=== PATIENT | female | born 1945 | race Two or more races ===

== ENCOUNTER 2016-03-07 04:15 | Emergency (ER) | payer OTHER ==
[2016-03-07 04:25] VITALS: TEMP 97.4; BMI 20.6
--- NOTE | 2016-03-07 04:33 | PDOC ---
History of Present Illness - General Chief Complaint: Nausea/Vomiting Stated Complaint: NAUSEA/VOMITING Time Seen by Provider: 03/07/16 04:25 - History of Present Illness Initial Comments: 03/07/16 04:29 This 71-year-old woman with a history of asthma, hypertension, hyperlipidemia brought in by ambulance with a few hour history of epigastric, burning pain and nausea. She denies vomiting/diarrhea/fever. She has had no shortness of breath or chest pain. Patient states that she began aware of epigastric discomfort as she was lying in bed (patient has chronic insomnia). She got up to go to the bathroom but felt nauseated and went to the kitchen sink. Before she could vomit , she began to fall backward. Her was able to catch her and she did not fall to the floor. states that patient did not have loss of consciousness at all, although she was quite pale during the episode. placed her on the kitchen floor and called EMS. Patient states that she does not remember nearly fainting but does remember lying on the floor. She no longer had nausea once she was lying on the floor. Patient's daughter who lives with her parents had vomiting/diarrhea illness about 4 days ago, now recovered. No other sick contacts. No recent unusual food ingestions/outside prepared meal. On presentation, patient has mild burning epigastric pain without nausea, shortness of breath or chest pain. Patient had recent onset of left leg pain (no history of trauma) for which she was seen at urgent care ([facility]) earlier this week. Blood work and ultrasound was performed which was reportedly negative. She saw vascular surgeon yesterday ; she was told that it was probably sciatica and not vascular in origin. The patient has a history of chronic mild lower back pain but no previous history of sciatica Medications Amlodipine Albuterol Lipitor Symbicort Omeprazole (as needed) Past History - Past Medical History Allergies/Adverse Reactions: Allergies Allergy/AdvReac Type Severity Reaction Status Date / Time nystatin Allergy Verified 03/07/16 04:26 Home Medications: Ambulatory Orders Albuterol Sulfate [Proair Respiclick] 90 mcg IH ASDIR 03/07/16 Amlodipine Besylate 5 mg PO DAILY 03/07/16 Budesonide/Formeterol Fumarate [SYMBICORT 160/4.5mcg -] 1 inh IH ASDIR 03/07/16 Lipitor 03/07/16 Ondansetron HCl [Zofran] 4 mg PO BID PRN #10 tablet 03/07/16 Pantoprazole Sodium [Protonix -] 20 mg PO DAILY #30 tablet.ec 03/07/16 Review of Systems - Review of Systems Able to Perform ROS?: Yes Comments:: 12 point review of systems is negative except for what is noted in the history of present illness *Physical Exam - Physical Exam Comments: Adult female, alert and oriented 3, in no acute distress Vital signs as noted HEAD: No contusions, abrasions or lacerations of the scalp; no facial ecchymosis , deformities or tenderness EYES: Pupils equal, round and reactive to light, extraocular movements intact, sclera anicteric, conjunctiva clear PHARYNX: No erythema, exudate or edema; mucous membranes dry NECK: Supple, nontender, no masses or bruits LUNGS: Clear to auscultation bilaterally CARDIAC: S1, S2 normal; no extra sounds, rubs or murmurs heard ABDOMEN:Normoactive bowel sounds, nontender, no masses, no organomegaly EXTREMITIES: Normal range of motion, no edema,deformity or tenderness NEUROLOGICAL: Cranial nerves II through XII grossly intact. Normal speech, normal gait.moving all 4 extremities equally, Sensation intact in all extremities. PSYCH: Normal mood, normal affect. SKIN: Warm, Dry, normal turgor, no rashes or lesions noted. Twelve-lead EKG is performed and this shows sinus bradycardia at 57 bpm. Dent, intervals and wave forms are all normal. No previous EKG tracing available for comparison. ED Treatment Course - LABORATORY CBC & Chemistry Diagram: 03/07/16 04:39 03/07/16 04:39 Medical Decision Making - Medical Decision Making 03/07/16 06:26 Patient continues to have some burning epigastric pain but no nausea after Protonix 40 mg IV. No shortness of breath, chest pain, diaphoresis present Laboratory evaluation shows normal CBC and chemistry profile with evidence of mild prerenal azotemia (BUN 17 with a creatinine 0.7); no electrolyte abnormalities evident and LFTs are also normal. Cardiac enzymes are not elevated Because the patient had an episode of presyncope and history of left lower extremity pain, d-dimer was sent to evaluate for possibility of pulmonary embolus. D-dimer is elevated at 1713 03/07/16 06:41 Results of evaluation discussed with the patient and her family. CT angiogram of the chest will be performed to rule out PE. Patient has a history of pulmonary nodules, first noted several years ago. Since then she's had approximately 3 chest CTs that have shown no growth of the small bilateral nodules. According to the patient and her family, she is due for routine follow- up chest CT since the last study was approximately 3 years ago. 03/07/16 07:11 Care of this patient signed out to incoming physician at end of shift. *DC/Admit/Observation/Transfer Diagnosis at time of Disposition: Epigastric pain - Discharge Dispostion Disposition: HOME Condition at time of disposition: Improved - Prescriptions Prescriptions: Pantoprazole Sodium [Protonix -] 20 mg PO DAILY #30 tablet.ec Ondansetron HCl [Zofran] 4 mg PO BID PRN #10 tablet PRN Reason: Nausea - Referrals Referrals: Augusta Pisano [Primary Care Provider] - - Patient Instructions Printed Discharge Instructions: DI for Abdominal Pain-Adult, DI for Nausea -- Adult Additional Instructions: May Thank you for coming to the ER today Please review your CT scan and follow up with your primary care physician Please monitor yourself for new symptoms Return to the ER for any other concerns or complaints
[2016-03-07] MEDS ORDERED: PANTOPRAZOLE SODIUM 40 MG in SODIUM CHLORIDE 100 ML IVPB ONE (05:01)
[2016-03-07] MEDS ORDERED: PANTOPRAZOLE SODIUM 40 MG VIAL ONE (05:01)
[2016-03-07 05:37] LABS: BASOPHIL 0.1 % (0-2.0); EOSINOPHIL 1.8 % (0-4.5); MCH 29.4 pg (25.7-33.7); MCHC 32.3 g/dl (32.0-36.0); MEAN PLT VOLUME 10.1 fl (7.5-11.1); NEUTROPHILS 75.3 % (42.8-82.8); PLATELET COUNT 208 K/MM3 (134-434); RDW 13.7 % (11.6-15.6); WHITE BLOOD COUNT 8.2 K/mm3 (4.0-10.0)
[2016-03-07 05:40] LABS: URINE APPEARANCE CLEAR; URINE BILIRUBIN NEGATIVE (NEGATIVE); URINE COLOR YELLOW; URINE GLUCOSE (UA) NEGATIVE (NEGATIVE); URINE KETONE NEGATIVE (NEGATIVE); URINE NITRITE NEGATIVE (NEGATIVE); URINE PROTEIN NEGATIVE (NEGATIVE); URINE UROBILINOGEN 2.0 E.U/dl E.U./dl (0.2-1.0)
[2016-03-07 05:44] LABS: URINE BLOOD 1+ (NEGATIVE); URINE LEUK ESTERASE 1+ (NEGATIVE)
[2016-03-07 05:48] LABS: URINE MUCUS FEW; URINE RBC 2 /hpf (0-3); URINE WBC 10 /hpf (3-5)
[2016-03-07 05:50] LABS: INR 1.11 (0.82-1.09); PROTHROMBIN TIME (PATIENT) 12.2 SEC (9.98-11.88)
[2016-03-07 05:59] LABS: ALBUMIN 3.5 g/dl (3.4-5.0); ANION GAP 7 (8-16); BILIRUBIN,TOTAL 0.8 mg/dL (0.2-1.0); CALCIUM 8.5 mg/dL (8.5-10.1); CO2 28 mmol/L (21-32); CREATININE 0.7 mg/dL (0.55-1.02); GLUCOSE,RANDOM 106 mg/dL (74-106); SGOT/AST 23 U/L (15-37); SGPT/ALT 37 U/L (12-78); TOT PROT 6.4 g/dl (6.4-8.2)
[2016-03-07 06:02] LABS: ALK PHOS 80 U/L (45-117); TROPONIN I < 0.02 ng/ml (0.00-0.05)
[2016-03-07] MEDS ORDERED: SODIUM CHLORIDE 1,000 ML IV SCH (06:45)
[2016-03-07 06:48] VITALS: BP 126/63; PULSE 67
--- NOTE | 2016-03-07 08:37 | PDOC ---
*Physical Exam - Vital Signs Last Vital Signs Temp Pulse Resp BP Pulse Ox 97.4 F L 67 16 126/63 96 03/07/16 04:17 03/07/16 06:47 03/07/16 06:47 03/07/16 06:47 03/07/16 06:47 ED Treatment Course - LABORATORY CBC & Chemistry Diagram: 03/07/16 04:39 03/07/16 04:39 - ADDITIONAL ORDERS Additional order review: Laboratory Results 03/07/16 03/07/16 03/07/16 04:56 04:39 04:39 INR D-Dimer 1713 H Sodium Potassium Chloride Carbon Dioxide Anion Gap BUN Creatinine Creat Clearance w eGFR Random Glucose Calcium Total Bilirubin AST ALT Alkaline Phosphatase Creatine Kinase Troponin I Total Protein Albumin Lipase 228 Urine Color Yellow Urine Appearance Clear Urine pH 6.0 Ur Specific [place] 1.020 Urine Protein Negative Urine Glucose (UA) Negative Urine Ketones Negative Urine Blood 1+ H Urine Nitrite Negative Urine Bilirubin Negative Urine Urobilinogen 2.0 e.u/dl H Ur Leukocyte Esterase 1+ H Urine RBC 2 Urine WBC 10 Ur Epithelial Cells Rare Urine Mucus Few 03/07/16 03/07/16 03/07/16 04:39 04:39 04:39 INR 1.11 D-Dimer Sodium 142 Potassium 3.5 Chloride 107 Carbon Dioxide 28 Anion Gap 7 L BUN 17 Creatinine 0.7 Creat Clearance w eGFR > 60 Random Glucose 106 Calcium 8.5 Total Bilirubin 0.8 AST 23 ALT 37 Alkaline Phosphatase 80 Creatine Kinase Cancelled 63 Troponin I Cancelled < 0.02 Total Protein 6.4 Albumin 3.5 Lipase Urine Color Urine Appearance Urine pH Ur Specific [place] Urine Protein Urine Glucose (UA) Urine Ketones Urine Blood Urine Nitrite Urine Bilirubin Urine Urobilinogen Ur Leukocyte Esterase Urine RBC Urine WBC Ur Epithelial Cells Urine Mucus 03/07/16 04:39 RBC 4.72 MCV 91.0 MCHC 32.3 RDW 13.7 MPV 10.1 Neutrophils % 75.3 Lymphocytes % 17.3 Monocytes % 5.5 Eosinophils % 1.8 Basophils % 0.1 - Medications Given in the ED: ED Medications Discontinued Medications Generic Name Dose Route Start Last Admin Trade Name Freq PRN Reason Stop Dose Admin Pantoprazole Sodium 40 mg/ 100 mls @ 200 mls/hr 03/07/16 05:01 03/07/16 05:06 Sodium Chloride IVPB 03/07/16 05:30 200 mls/hr ONCE ONE Administration Medical Decision Making - Medical Decision Making 03/07/16 08:34 This patient was signed out to me by Dr. Diez. Briefly she is a 71-year-old female with a history of hypertension, hyperlipidemia, diabetes who presents emergency department with a complaint of epigastric pain. No vomiting or diarrhea. No recent travel. No fevers or chills. Patient also mentions is lower extremity pain. D dimer sent and is elevated. Patient awaiting CTA. CT came back and demonstrates no evidence of pulmonary embolism. Platelet atelectasis noted in both lungs. Fibrotic changes in both lung apices. There is a 5 mm nodule in the right base. No mediastinal masses, lymphadenopathy. No evidence of aneurysm or dissection. Patient states she feels better. Will discharged home. Patient has a history of lung nodules which are followed as an outpatient (( last CT 3 years ago). Will discharge patient with copies of her CT and asked to follow up at [facility] Emergency Department with any other concerns or complaints *DC/Admit/Observation/Transfer Diagnosis at time of Disposition: Epigastric pain - Discharge Dispostion Disposition: HOME Condition at time of disposition: Improved Admit: No - Patient Instructions Printed Discharge Instructions: DI for Nausea -- Adult, DI for Abdominal Pain- Adult Additional Instructions: May Thank you for coming to the ER today Please review your CT scan and follow up with your primary care physician Please monitor yourself for new symptoms Return to the ER for any other concerns or complaints
--- NOTE | 2016-03-07 12:18 | EKG ---
Test Reason : Blood Pressure : / mmHG Vent. Rate : 057 BPM Atrial Rate : 057 BPM P-R Int : 184 ms QRS Dur : 084 ms QT Int : 472 ms P-R-T Axes : 048 055 067 degrees QTc Int : 459 ms SINUS BRADYCARDIA POSSIBLE LEFT ATRIAL ENLARGEMENT OTHERWISE NORMAL ECG NO PREVIOUS ECGS AVAILABLE Confirmed by ELE GLORIA MD ([id number]) on 03/07/2016 12:18:26 PM Referred By: MD RICK Confirmed By:ELE GLORIA MD
== END 2016-03-07 08:57 | disposition home or self-care (01) ==
LOC: FER 04:15
PROC: 3E033GC Introduction of Other Therapeutic Substance into Peripheral Vein, Percutaneous Approach (ICD-10-PCS; principal; 2016-03-07)
PROC: 3E0337Z Introduction of Electrolytic and Water Balance Substance into Peripheral Vein, Percutaneous Approach (ICD-10-PCS; 2016-03-07)
DX: R10.13 Epigastric pain (principal); I10 Essential (primary) hypertension; E78.5 Hyperlipidemia, unspecified; E11.9 Type 2 diabetes mellitus without complications
CPT/HCPCS: 36415; 71275-TC; 80053; 81003; 81015; 82550; 83690; 84484; 85025; 85379; 85610; 93005; 99284-25

== ENCOUNTER 2018-05-21 21:29 | Emergency (ER) | payer OTHER ==
[2018-05-21 21:58] VITALS: TEMP 97.9; BMI 23.3
--- NOTE | 2018-05-21 23:17 | PDOC ---
History of Present Illness - General Chief Complaint: Palpitations Stated Complaint: PALPITATIONS Time Seen by Provider: 05/21/18 22:00 - History of Present Illness Initial Comments: This 73-year-old woman with a history of HTN/HLD/asthma/bronchitis/GERD presents with a history of 2 episodes of "palpitations" earlier this evening. Patient states that first, while preparing dinner and afterwards after dinner, patient felt rapid heartbeat lasting several minutes. She had no other symptoms during this time (specifically, no chest pain/pressure, shortness of breath, diaphoresis or nausea). She had no lightheadedness although she felt somewhat "drained" and fatigued around the time of the rapid heartbeat. No history of cardiac arrhythmia or sustained tachycardia. No history of thyroid function abnormalities. Patient admits to feeling tired today when she was taking care of her grandson (states that she does not sleep well). Also, she drank a cup of espresso earlier today; she normally drinks only decaffeinated coffee. Past History - Past Medical History Allergies/Adverse Reactions: Allergies Allergy/AdvReac Type Severity Reaction Status Date / Time nystatin Allergy Verified 05/21/18 21:32 Home Medications: Ambulatory Orders Albuterol Sulfate [Proair Respiclick] 90 mcg IH ASDIR PRN 03/07/16 Amlodipine Besylate 5 mg PO DAILY 03/07/16 Budesonide/Formeterol Fumarate [SYMBICORT 160/4.5mcg -] 2 inh IH BID 03/07/16 Albuterol 0.083% Nebulizer Lisette [Ventolin 0.083% Nebulizer Soln -] 1 amp NEB PRN PRN 05/21/18 Simvastatin [Zocor] 10 mg PO HS 05/21/18 Umeclidinium [place] [Incruse Ellipta] 62.5 mcg IH DAILY 05/21/18 Asthma: Yes COPD: No GI Disorders: Yes (ACID REFLUX) HTN: Yes Hypercholesterolemia: Yes - Suicide/Smoking/Psychosocial Hx Smoking History: Never smoked Hx Alcohol Use: No Drug/Substance Use Hx: No Substance Use Type: None Review of Systems - Review of Systems Able to Perform ROS?: Yes Comments:: 12 point review of systems is negative except for what is noted in the history of present illness *Physical Exam - Vital Signs Last Vital Signs Temp Pulse Resp BP Pulse Ox 97.9 F 60 16 134/67 99 05/21/18 21:31 05/22/18 01:18 05/22/18 01:18 05/22/18 01:18 05/22/18 01:18 - Physical Exam Comments: GENERAL: Adult female, alert and oriented 3, in no acute distress HEAD: Normal with no signs of trauma. EYES: PERRLA, EOMI, sclera anicteric, conjunctiva clear. ENT: Ears normal, nares patent, oropharynx clear without exudates. Moist mucous membranes. NECK: Normal range of motion, supple without lymphadenopathy, JVD, or masses. LUNGS: Breath sounds equal, clear to auscultation bilaterally. No wheezes, and no crackles. HEART:Regular rate and rhythm, normal S1 and S2 without murmur, rub or gallop. ABDOMEN:.normal bowel sounds No guarding,tenderness or rebound.No masses No distention. EXTREMITIES: Normal range of motion, no edema. No clubbing or cyanosis. No erythema, or tenderness. NEUROLOGICAL: Cranial nerves II through XII grossly intact. Normal speech. No focal neurological deficits. MUSCULOSKELETAL: Back non-tender to palpation, no CVA tenderness SKIN: Warm, Dry, normal turgor, no rashes or lesions noted. 12-lead electrocardiogram performed and interpreted by me: Normal sinus rhythm at 63 bpm. Wave forms, axis and intervals are all normal. No evidence of acute ST or T-wave abnormalities. No evidence of acute cardiac arrhythmia Moderate Sedation - Procedure Monitoring Vital Signs: Procedure Monitoring Vital Signs Temperature 97.9 F 05/21/18 21:31 Pulse Rate 60 05/22/18 01:18 Respiratory Rate 16 05/22/18 01:18 Blood Pressure 134/67 05/22/18 01:18 O2 Sat by Pulse Oximetry (%) 99 05/22/18 01:18 ED Treatment Course - LABORATORY CBC & Chemistry Diagram: 05/21/18 23:33 - ADDITIONAL ORDERS Additional order review: Laboratory Results 05/21/18 05/21/18 23:34 23:34 Creatine Kinase 104 Troponin I < 0.02 TSH 1.43 05/21/18 23:33 RBC 4.63 MCV 93.0 MCHC 34.9 RDW 13.4 MPV 9.9 Neutrophils % 64.8 Lymphocytes % 19.8 Monocytes % 8.2 Eosinophils % 6.8 H Basophils % 0.4 Medical Decision Making - Medical Decision Making Because patient has 2 risk factors for coronary artery disease (hypertension/ hyperlipidemia), CBC, chemistry profile TSH level, troponin level sent to evaluate for acute intracardiac abnormalities. CBC normal as is troponin. TSH was also within normal limits Patient continued to feel well without any evidence of cardiac arrhythmia. Results discussed with the patient. She should follow-up with her doctor in the near future(yearly exam scheduled in the next 10 days). Also, she should avoid any caffeinated beverages and drink plenty of water. If she has persistent irregular or rapid heartbeat, she should return to the ER. *DC/Admit/Observation/Transfer Diagnosis at time of Disposition: Palpitations - Discharge Dispostion Disposition: HOME Condition at time of disposition: Stable - Referrals Referrals: Augusta Pisano [Primary Care Provider] - - Patient Instructions Printed Discharge Instructions: DI for Palpitations Additional Instructions: drink plenty of water avoid caffeinated drinks followup with your general medical doctor as scheduled return to ER if you have persistent fast or irregular heartbeat or develop chest pain/ difficulty breathing - Post Discharge Activity
[2018-05-22 00:11] LABS: BASO % 0.4 % (0-2.0); EOS % 6.8 % (0-4.5); HEMATOCRIT 43.1 % (32.4-45.2); LYMPH % 19.8 % (8-40); MCH 32.4 pg (25.7-33.7); MCHC 34.9 g/dl (32.0-36.0); MEAN PLT VOLUME 9.9 fl (7.5-11.1); MONO % 8.2 % (3.8-10.2); NEUT % 64.8 % (42.8-82.8); PLATELET COUNT 188 K/MM3 (134-434); RBC 4.63 M/mm3 (3.60-5.2); RDW 13.4 % (11.6-15.6); WHITE BLOOD COUNT 7.9 K/mm3 (4.0-10.0)
[2018-05-22 01:19] VITALS: BP 134/67
[2018-05-22 01:21] VITALS: PULSE 60
--- NOTE | 2018-05-22 16:27 | EKG ---
Test Reason : Blood Pressure : / mmHG Vent. Rate : 063 BPM Atrial Rate : 063 BPM P-R Int : 172 ms QRS Dur : 084 ms QT Int : 478 ms P-R-T Axes : 076 047 065 degrees QTc Int : 489 ms NORMAL SINUS RHYTHM NONSPECIFIC ST ABNORMALITY ABNORMAL ECG WHEN COMPARED WITH ECG OF 11-MAY-2016 02:51, NO SIGNIFICANT CHANGE WAS FOUND Confirmed by TYLER AGUAYO MD ([id number]) on 05/22/2018 4:26:45 PM Referred By: MD RICK Confirmed By:TYLER AGUAYO MD
== END 2018-05-22 01:25 | disposition home or self-care (01) ==
LOC: FER 21:29
DX: R00.2 Palpitations (principal); I10 Essential (primary) hypertension; E78.5 Hyperlipidemia, unspecified; K21.9 Gastro-esophageal reflux disease without esophagitis; J45.909 Unspecified asthma, uncomplicated
CPT/HCPCS: 36415; 82550; 84443; 84484; 85025; 93005; 99283-25

== ENCOUNTER 2018-06-03 21:13 | Emergency (ER) | payer OTHER ==
--- NOTE | 2018-06-03 21:21 | PDOC ---
History of Present Illness - General History Source: Patient, Family Exam Limitations: No Limitations - History of Present Illness Initial Comments: 06/03/18 21:58 This is a 73-year-old female with a significant past medical history of HTN, HLD , asthma, bronchitis, GERD presents who presents to the emergency department with two of days of fatigue, generalized weakness, chills, intermittent abdominal pain, nausea, and diarrhea with increase in symptoms around 6PM this evening.She reports experiencing some short lasting, intermittent, diffuse abdominal pains associated with nausea and about 3 episodes of diarrhea yesterday. She states she ate a small amount of rice around lunchtime yesterday , however, reports feeling flushed and weak later in the evening for which she went to sleep without eating dinner. She reports having one episode of loose stool today. She states she has only eaten half of a banana this morning and a couple spoonfuls of plain rice with lentils this evening around 5:30pm which she thinks exacerbated her abdominal pain. She reports the abdominal pain is diffuse and intermittent since yesterday, however, states the abdominal pain increased in severity this evening with associated increased weakness prompting her ED visit this evening. As per the , the patient was shivering around 7:30PM. The patient states she ate one small plain cookie prior to arrival which also exacerbated her symptoms. Secondarily, she reports a momentary episode of SOB this afternoon which she used her inhalers for with relief. The patient denies chest pain, headache and dizziness. The patient denies fever , and constipation. The patient denies dysuria, frequency, urgency and hematuria. Allergies: nystatin <Elisha Morgan - Last Filed: 06/03/18 22:02> <Octavia Diez - Last Filed: 06/04/18 03:14> - General Chief Complaint: Nausea Stated Complaint: NAUSEA Time Seen by Provider: 06/03/18 21:15 Past History <Elisha Morgan - Last Filed: 06/03/18 22:02> - Past Medical History Asthma: Yes COPD: No GI Disorders: Yes (ACID REFLUX) HTN: Yes Hypercholesterolemia: Yes - Suicide/Smoking/Psychosocial Hx Smoking History: Never smoked Hx Alcohol Use: No Drug/Substance Use Hx: No Substance Use Type: None <Octavia Diez - Last Filed: 06/04/18 03:14> - Past Medical History Allergies/Adverse Reactions: Allergies Allergy/AdvReac Type Severity Reaction Status Date / Time nystatin Allergy Verified 05/21/18 21:32 Home Medications: Ambulatory Orders Albuterol Sulfate [Proair Respiclick] 90 mcg IH ASDIR PRN 03/07/16 Amlodipine Besylate 5 mg PO DAILY 03/07/16 Budesonide/Formeterol Fumarate [SYMBICORT 160/4.5mcg -] 2 inh IH BID 03/07/16 Albuterol 0.083% Nebulizer Lisette [Ventolin 0.083% Nebulizer Soln -] 1 amp NEB PRN PRN 05/21/18 Simvastatin [Zocor] 10 mg PO HS 05/21/18 Ondansetron [Zofran Odt -] 4 mg SL TID PRN #12 od.tablet 06/03/18 Review of Systems - Review of Systems Able to Perform ROS?: Yes Comments:: 06/03/18 21:58 CONSTITUTIONAL: (+) generalized weakness, fatigue, chills, loss of appetite. Absent: fever, diaphoresis, HEENT: Absent: rhinorrhea, nasal congestion, throat pain, throat swelling, difficulty swallowing,mouth swelling, ear pain, eye pain, visual Changes CARDIOVASCULAR: Absent: chest pain, syncope, palpitations, irregular heart rate, lightheadedness , peripheral edema RESPIRATORY: (+) shortness of breath now resolved. ,Absent: cough, dyspnea with exertion, orthopnea, wheezing, stridor, hemoptysis GASTROINTESTINAL: (+) abdominal pain, nausea, diarrhea, Absent: abdominal distension, vomiting, constipation,melena, hematochezia GENITOURINARY: Absent: dysuria, frequency, urgency, hesitancy, hematuria, flank pain, genital pain MUSCULOSKELETAL: Absent: myalgia, arthralgia, joint swelling SKIN: Absent: rash, itching, pallor HEMATOLOGIC/IMMUNOLOGIC: Absent: easy bleeding, easy bruising, lymphadenopathy, frequent infections ENDOCRINE: Absent: unexplained weight gain, unexplained weight loss, heat intolerance, cold intolerance NEUROLOGIC: Absent: headache, focal weakness or paresthesias, dizziness, unsteady gait, seizure, mental status changes, bladder or bowel incontinence PSYCHIATRIC: Absent: anxiety, depression, suicidal or homicidal ideation, hallucinations. <Elisha Morgan - Last Filed: 06/03/18 22:02> *Physical Exam - Vital Signs Last Vital Signs Temp Pulse Resp BP Pulse Ox 97.7 F 59 L 16 177/73 H 99 06/03/18 21:14 06/03/18 21:14 06/03/18 21:14 06/03/18 21:14 06/03/18 21:14 - Physical Exam Comments: 06/03/18 22:00 GENERAL: The patient is awake, alert, and fully oriented, in no acute distress. HEAD: Normal with no signs of trauma. EYES: Pupils equal, round and reactive to light, extraocular movements intact, sclera anicteric, conjunctiva clear with no pallor. ENT: Ears normal, nares patent, oropharynx clear without exudates. (+) Dry mucous membranes. NECK: Normal range of motion, supple without lymphadenopathy, JVD, or masses. LUNGS: Breath sounds equal, clear to auscultation bilaterally. No wheeze/ crackles. HEART: Regular rate and rhythm, normal S1 and S2 without murmur or rub. ABDOMEN: Soft/nontender/nondistended. BS wnl. No guarding or rebound. No palpable masses. No hepatosplenomegaly. EXTREMITIES: Normal range of motion, no edema. No clubbing or cyanosis. No cords , erythema, or tenderness. NEUROLOGICAL: Cranial nerves II through XII grossly intact. Normal speech, normal gait. PSYCH: Normal mood, normal affect. SKIN: Warm, Dry, normal turgor, no rashes or lesions noted. <Elisha Morgan - Last Filed: 06/03/18 22:02> ED Treatment Course - LABORATORY CBC & Chemistry Diagram: 06/03/18 22:10 06/03/18 22:10 <Octavia Diez - Last Filed: 06/04/18 03:14> Progress Note - Progress Note Progress Note: Documentation has been prepared under my direction and personally reviewed by me in its entirety. I attest that this documented accurately reflects all work, treatment, procedures and medical decision making performed by me. <Octavia Diez - Last Filed: 06/04/18 03:14> Medical Decision Making - Medical Decision Making As noted above, this 73-year-old woman with a history of bronchitis/asthma, GERD , HTN, HLD presents with a few day history of nausea/vomiting/diarrhea and epigastric discomfort. Although she has had a few episodes of loose stool over the last 48 hours, she currently is not having frequent loose stools. She has had decrease in oral intake secondary to her nausea. No known sick contacts however she is in close contact with a grandson and had been in her PMDs office over the last few days. Exam as noted. Because the patient has risk factors for coronary artery disease, and has had intermittent epigastric pain with 1 episode (brief) of shortness of breath, 12- lead electrocardiogram performed: Normal sinus rhythm at 72 bpm; wave forms, axis, intervals are all normal. No evidence of acute ST or T-wave abnormalities. No evidence of acute cardiac arrhythmias seen. Patient received 500 mL normal saline IV as well as Pepcid 20 mg IV/Zofran 4 mg IV. CBC/chemistry profile/troponin evaluated: Other than minimal hypokalemia (3.4 millimoles/liter), no significant abnormality seen. Troponin not elevated. Clinical presentation most likely acute gastroenteritis, probably of viral origin. Patient feels improved after IV fluids and medications. Patient will be discharged with instructions to maintain clear liquids and cautiously advance to bland diet. She has been taking probiotics and she has been advised to continue to take these. Prescription for Zofran ODT 4 mg to be used as needed for recurrent nausea sent to her pharmacy. Patient should return to the ER if she has persistent vomiting, severe pain or develops fever. She should follow up with her PMD within the next 5-7 days <Octavia Diez - Last Filed: 06/04/18 03:14> *DC/Admit/Observation/Transfer - Attestations Scribe Attestion: 06/03/18 22:00 Documentation prepared by Elisha Morgan, acting as medical officer psychiatry for Octavia Diez MD <Elisha Morgan - Last Filed: 06/03/18 22:02> <Octavia Diez - Last Filed: 06/04/18 03:14> Diagnosis at time of Disposition: Acute gastroenteritis - Discharge Dispostion Disposition: HOME Condition at time of disposition: Stable - Prescriptions Prescriptions: Ondansetron [Zofran Odt -] 4 mg SL TID PRN #12 od.tablet PRN Reason: Nausea - Referrals Referrals: Augusta Pisano [Primary Care Provider] - - Patient Instructions Printed Discharge Instructions: Viral Gastroenteritis Additional Instructions: Clear liquids,then advance to bland diet as tolerated Zofran ODT 4 mg up to 3 times a day as needed for nausea Continue probiotics as discussed Return to ER if you have worsening pain or persistent nausea/vomiting Follow-up with your doctor within the next week - Post Discharge Activity
[2018-06-03 21:23] VITALS: TEMP 97.7; BMI 23.1
[2018-06-03] MEDS ORDERED: SODIUM CHLORIDE 500 ML IV STA (21:54)
[2018-06-03] MEDS ORDERED: FAMOTIDINE 20 MG/50 ML IVPB 20 MG/50 ML MG IVPB ONE ×2 (22:06→22:15)
[2018-06-03] MEDS ORDERED: ONDANSETRON 4 MG/2 ML VIAL IVPUSH ONE (22:06)
[2018-06-03] MEDS ORDERED: ONDANSETRON 4 MG/2 ML VIAL ONE (22:15)
[2018-06-03 22:38] LABS: BASO % 0.3 % (0-2.0); EOS % 4.8 % (0-4.5); HEMATOCRIT 44.2 % (32.4-45.2); HEMOGLOBIN 14.3 GM/dl (10.7-15.3); LYMPH % 16.1 % (8-40); MCH 30.1 pg (25.7-33.7); MCHC 32.5 g/dl (32.0-36.0); MEAN CELL VOLUME 92.9 fl (80-96); MEAN PLT VOLUME 10.3 fl (7.5-11.1); NEUT % 70.8 % (42.8-82.8); PLATELET COUNT 188 K/MM3 (134-434); RBC 4.75 M/mm3 (3.60-5.2); RDW 12.5 % (11.6-15.6); WHITE BLOOD COUNT 9.7 K/mm3 (4.0-10.8)
[2018-06-03 22:45] LABS: ALK PHOS 73 U/L (45-117); ANION GAP 6 MMOL/L (8-16); BILIRUBIN,TOTAL 1.2 mg/dl (0.2-1); BLOOD UREA NITROGEN 17 mg/dl (7-18); CALCIUM 9.3 mg/dl (8.5-10); CHLORIDE 107 mmol/L (98-107); CO2 29 mmol/L (21-32); CREATININE 0.6 mg/dl (0.55-1.3); GLUCOSE,RANDOM 118 mg/dl (74-106); POTASSIUM 3.4 mmol/L (3.5-5.1); SGOT/AST 19 U/L (15-37); SGPT/ALT 15 U/L (13-61); SODIUM 142 mmol/L (136-145); TOT PROT 6.7 g/dl (6.4-8.2)
[2018-06-03 23:31] VITALS: BP 133/63; PULSE 63
--- NOTE | 2018-06-04 11:57 | EKG ---
Test Reason : Blood Pressure : / mmHG Vent. Rate : 061 BPM Atrial Rate : 061 BPM P-R Int : 176 ms QRS Dur : 084 ms QT Int : 466 ms P-R-T Axes : 063 058 067 degrees QTc Int : 469 ms POOR DATA QUALITY, INTERPRETATION MAY BE ADVERSELY AFFECTED NORMAL SINUS RHYTHM NORMAL ECG WHEN COMPARED WITH ECG OF 21-MAY-2018 23:14, NO SIGNIFICANT CHANGE WAS FOUND Confirmed by MARICRUZ NOLAN, MIGUE ([id number]) on 06/04/2018 11:57:06 AM Referred By: DR RICK Confirmed By:MIGUE ALCANTARA MD
== END 2018-06-03 23:30 | disposition home or self-care (01) ==
LOC: SUPCPDRO 21:13 → FER 21:13
PROC: 3E033GC Introduction of Other Therapeutic Substance into Peripheral Vein, Percutaneous Approach (ICD-10-PCS; principal; 2018-06-03)
PROC: 3E0337Z Introduction of Electrolytic and Water Balance Substance into Peripheral Vein, Percutaneous Approach (ICD-10-PCS; 2018-06-03)
DX: K52.9 Noninfective gastroenteritis and colitis, unspecified (principal); I10 Essential (primary) hypertension; E78.5 Hyperlipidemia, unspecified; J45.909 Unspecified asthma, uncomplicated; K21.9 Gastro-esophageal reflux disease without esophagitis
CPT/HCPCS: 36415; 80053; 82550; 84484; 85025; 93005; 99283-25

== ENCOUNTER 2018-12-26 22:16 | Emergency (ER) | payer OTHER ==
[2018-12-26] MEDS ORDERED: KETOROLAC TROMETHAMINE 30 MG/1 ML VIAL IVPUSH ONE (22:29)
[2018-12-26 22:31] VITALS: BP 153/75; PULSE 67; TEMP 98; BMI 21.2
--- NOTE | 2018-12-26 22:32 | PDOC ---
History of Present Illness - General Chief Complaint: Weakness Stated Complaint: WEAKNESS,BLOODY NOSE TONIGHT Time Seen by Provider: 12/26/18 22:28 History Source: Patient Exam Limitations: No Limitations - History of Present Illness Initial Comments: 12/26/18 22:44 This is a 73-year-old female who comes in complaining of back pain for which she took ibuprofen earlier. Post taking ibuprofen patient said that she developed a nosebleed and was concerned that the nosebleed was a result of the ibuprofen. Patient says she does not regularly take ibuprofen but has recently her back is been bothering her and was at the doctor 2 days ago and diagnosed with sciatica and told to take the ibuprofen. Patient said that the nosebleed resolved on its own after several minutes. Patient otherwise denies any shortness of breath, chest pain no abdominal pain or any other complaints. Patient is very stressed out about family issues. Allergies: as per nursing notes Past Medical History: none Social history: Lives with family. No smoking. No alcohol. No illicit drugs. Surgical history: None General: No fevers or chills, no weakness, no weight loss HEENT: No change in vision. No sore throat,. No ear pain, nosebleed CardioVascular: no chest discomfort. No shortness of breath Respiratory:No cough, or wheezing. Gastrointestinal: no nausea, vomiting, diarrhea or constipation, No rectal bleeding Genitourinary: No dysuria, hematuria, or frequency Musculoskeletal: No joint or muscle pain or swelling, sciatica Neurologic: No headache, vertigo, dizziness or loss of consciousness Psychiatric: nor depression Skin: No rashes or easy bruising Endocrine: no increased thirst or abnormal weight change Allergic: no skin or latex allergy All other systems reviewed and normal Exam: General: Well-nourished well-developed individual, no acute distress HEENT: Throat: Normal, tonsils normal, no erythema or exudate Nose: There is some erythema of the nasal septum of the left nares with a small clot on the nasal septum. Neck: Supple, no meningeal signs, no lymphadenopathy Eyes::Pupils equal reactive and round, extraocular motion intact Chest: Nontender to palpation Cardiac: S1-S2 normal, regular rate and rhythm, no murmurs rubs or gallops Respiratory: Lungs clear to auscultation bilateral Abdomen: Soft, nondistended, normal bowel sounds, there is no tenderness on palpation diffusely Extremities: Warm, dry, no cyanosis, clubbing, or edema Skin: No rashes Neuro: Alert and oriented x3, CN II - XII intact, nonfocal exam with normal strength, normal sensation, normal reflexes, normal gait, Psych: Normal mood and affect Assessment and plan: This is a 73-year-old female who comes in complaining of pain being stressed out and a nosebleed. Patient is nose is no longer bleeding and has not bled for almost 10 hours now. Basic work-up was obtained including EKG CBC, comp And PT EKG showed sinus bradycardia at a rate of [address]-T wave changes otherwise normal EKG. 12/26/18 23:07 Reevaluation patient feels better post Toradol. Patient does have a primary care doctor she can follow-up with as well as an orthopedist. Patient discharged home Past History - Past Medical History Allergies/Adverse Reactions: Allergies Allergy/AdvReac Type Severity Reaction Status Date / Time nystatin Allergy Verified 12/26/18 22:25 Home Medications: Ambulatory Orders Albuterol Sulfate [Proair Respiclick] 90 mcg IH ASDIR PRN 03/07/16 Amlodipine Besylate 5 mg PO DAILY 03/07/16 Budesonide/Formeterol Fumarate [SYMBICORT 160/4.5mcg -] 2 inh IH BID 03/07/16 Albuterol 0.083% Nebulizer Lisette [Ventolin 0.083% Nebulizer Soln -] 1 amp NEB PRN PRN 05/21/18 Simvastatin [Zocor] 10 mg PO HS 05/21/18 Ondansetron [Zofran Odt -] 4 mg SL TID PRN #12 od.tablet 06/03/18 Asthma: Yes COPD: No GI Disorders: Yes (ACID REFLUX) HTN: Yes Hypercholesterolemia: Yes - Psycho Social/Smoking Cessation Hx Smoking History: Never smoked Hx Alcohol Use: No Drug/Substance Use Hx: No Substance Use Type: None ED Treatment Course - LABORATORY CBC & Chemistry Diagram: 12/26/18 22:40 12/26/18 22:40 Discharge - Discharge Information Problems reviewed: Yes Clinical Impression/Diagnosis: Weak Condition: Stable Disposition: HOME - Admission No - Follow up/Referral - Patient Discharge Instructions Additional Instructions: Take Tylenol for your back pain limited the ibuprofen to 2 tablets 3 times a day if needed with food do not take on an empty stomach. Return to the emergency department immediately with ANY new, persistent or worsening symptoms. Continue any medications as previously prescribed by your physician. You should follow up with your primary doctor as soon as possible regarding today's emergency department visit. . Please make sure your doctor reviews the results of your emergency evaluation. Thank you for coming to the Emergency Department today for your care. It was a pleasure to see you today. Please note that your evaluation is INCOMPLETE until you follow-up with your doctor. - Post Discharge Activity
[2018-12-26] MEDS ORDERED: KETOROLAC TROMETHAMINE 30 MG/1 ML VIAL ONE (22:39)
[2018-12-26 22:51] LABS: BASO % 0.4 % (0-2.0); EOS % 9.3 % (0-4.5); HEMATOCRIT 45.8 % (32.4-45.2); HEMOGLOBIN 15.3 GM/dl (10.7-15.3); LYMPH % 21.7 % (8-40); MCH 31.5 pg (25.7-33.7); MCHC 33.4 g/dl (32.0-36.0); MEAN CELL VOLUME 94.4 fl (80-96); MEAN PLT VOLUME 10.2 fl (7.5-11.1); MONO % 8.2 % (3.8-10.2); NEUT % 60.4 % (42.8-82.8); PLATELET COUNT 216 K/MM3 (134-434); RBC 4.85 M/mm3 (3.60-5.2); RDW 12.6 % (11.6-15.6); WHITE BLOOD COUNT 8.4 K/mm3 (4.0-10.8)
[2018-12-26 22:56] LABS: INR 1.12 (0.82-1.09); PROTHROMBIN TIME (PATIENT) 12.5 SEC (10.2-13.0)
[2018-12-26 22:57] LABS: EPITHELIAL CELLS FEW /hpf
[2018-12-26 23:05] LABS: BILIRUBIN,TOTAL 0.7 mg/dl (0.2-1); CALCIUM 9.5 mg/dl (8.5-10); CREATININE 0.7 mg/dl (0.55-1.3); POTASSIUM 3.9 mmol/L (3.5-5.1); TOT PROT 7.4 g/dl (6.4-8.2)
--- NOTE | 2018-12-27 15:53 | EKG ---
Test Reason : Blood Pressure : / mmHG Vent. Rate : 054 BPM Atrial Rate : 054 BPM P-R Int : 170 ms QRS Dur : 082 ms QT Int : 464 ms P-R-T Axes : 070 054 064 degrees QTc Int : 440 ms SINUS BRADYCARDIA OTHERWISE NORMAL ECG WHEN COMPARED WITH ECG OF 03-JUN-2018 21:55, NO SIGNIFICANT CHANGE WAS FOUND Confirmed by CINDY VELAZQUEZ MD ([id number]) on 12/27/2018 3:52:34 PM Referred By: LUIS MCINTYRE Confirmed By:CINDY VELAZQUEZ MD
== END 2018-12-26 23:24 | disposition home or self-care (01) ==
LOC: FER 22:16
PROC: 3E0333Z Introduction of Anti-inflammatory into Peripheral Vein, Percutaneous Approach (ICD-10-PCS; principal; 2018-12-26)
DX: R53.1 Weakness (principal); K21.9 Gastro-esophageal reflux disease without esophagitis; I10 Essential (primary) hypertension; E78.00 Pure hypercholesterolemia, unspecified; J45.909 Unspecified asthma, uncomplicated; Z88.8 Allergy status to other drugs, medicaments and biological substances
CPT/HCPCS: 36415; 80053; 81003; 81015; 85025; 85610; 93005; 99282-25

== ENCOUNTER 2019-04-13 21:24 | Emergency (ER) | payer OTHER ==
[2019-04-13 21:36] VITALS: BP 163/53; PULSE 59; TEMP 97.3; BMI 20.9
[2019-04-13] MEDS ORDERED: diphenhydrAMINE HCL 25 MG CAPSULE (FP) PO ONE (21:56)
[2019-04-13] MEDS ORDERED: FAMOTIDINE 10 MG TABLET PO ONE (21:56)
[2019-04-13] MEDS ORDERED: diphenhydrAMINE HCL 50 MG CAPSULE ONE (21:58)
[2019-04-13] MEDS ORDERED: FAMOTIDINE 20 MG TABLET ONE (21:58)
[2019-04-13] MEDS ORDERED: predniSONE 20 MG TABLET (UD) PO ONE (22:47)
[2019-04-13] MEDS ORDERED: predniSONE 20 MG TABLET (UD) ONE (22:53)
--- NOTE | 2019-04-13 22:56 | PDOC ---
Documentation entered by Nuria Corrales SCRIBE, acting as scribe for Salty Giles MD. Salty Giles MD: This documentation has been prepared by the mattibe, Nuria Corrales SCRIBE, under my direction and personally reviewed by me in its entirety. I confirm that the documentation accurately reflects all work, treatment, procedures, and medical decision making performed by me. History of Present Illness - General Chief Complaint: Allergic Reaction Stated Complaint: ALLERGIC REACTION Time Seen by Provider: 04/13/19 21:55 History Source: Patient Exam Limitations: No Limitations - History of Present Illness Initial Comments: 04/13/19 23:00 The patient is a 74-year-old female with a past medical history significant for HTN, HLD, asthma, bronchitis, GERD, who presents to the emergency department with an allergic reaction. The patient reports she was recently started on Clotrimazole by PCP for oral thrush. The patient reports she had her first dose at 10:00 am and 2nd dose at 1:30 pm. The patient reports she had an onset of itchiness to both hands and eyes, which progressed to redness to the chest, underarms, and back. The patient reports a history of nystatin allergies. The patient states she has had clotrimazole in the past a long time ago, denies reaction at that time. Denies throat closing sensation, vomiting, or difficulty breathing. Denies new soap, clothes, perfumes, lotions or other new medications. Allergies: nystatin PCP: Dr. Augusta Cisneros Manager Steel: Dr. Fox. Past History - Past Medical History Allergies/Adverse Reactions: Allergies Allergy/AdvReac Type Severity Reaction Status Date / Time nystatin Allergy Verified 12/26/18 22:25 Home Medications: Ambulatory Orders Albuterol Sulfate [Proair Respiclick] 90 mcg IH ASDIR PRN 03/07/16 Amlodipine Besylate 5 mg PO DAILY 03/07/16 Budesonide/Formeterol Fumarate [SYMBICORT 160/4.5mcg -] 2 inh IH BID 03/07/16 Albuterol 0.083% Nebulizer Lisette [Ventolin 0.083% Nebulizer Soln -] 1 amp NEB PRN PRN 05/21/18 Simvastatin [Zocor -] 10 mg PO HS 05/21/18 Ondansetron [Zofran *Odt*] 4 mg SL TID PRN #12 od.tablet 06/03/18 Methylprednisolone [Medrol Dose Emerson] 4 mg PO ASDIR #21 tablet 04/13/19 Asthma: Yes COPD: No GI Disorders: Yes (ACID REFLUX) HTN: Yes Hypercholesterolemia: Yes - Psycho Social/Smoking Cessation Hx Smoking History: Unknown if ever smoked Have you smoked in the past 12 months: No Number of Cigarettes Smoked Daily: 0 Information on smoking cessation initiated: No Hx Alcohol Use: No Drug/Substance Use Hx: No Substance Use Type: None Review of Systems - Review of Systems HEENTM: Yes: Other (tongue thrush). No: Throat Swelling Respiratory: No: Cough, Shortness of Breath Cardiac (ROS): No: Chest Pain, Edema, Lightheadedness, Syncope ABD/GI: No: Nausea, Vomiting Integumentary: Yes: Rash Neurological: No: Headache All Other Systems: Reviewed and Negative *Physical Exam - Vital Signs Last Vital Signs Temp Pulse Resp BP Pulse Ox 97.3 F L 59 L 14 163/53 L 98 04/13/19 21:33 04/13/19 21:33 04/13/19 21:33 04/13/19 21:33 04/13/19 21:33 - Physical Exam 04/13/19 23:01 GENERAL: The patient is awake, alert, and fully oriented, in no acute distress. HEAD: Normal with no signs of trauma. EYES: Pupils equal, round and reactive to light, extraocular movements intact, sclera anicteric, conjunctiva clear with no pallor. ENT: +very mild residual thrush on the tongue, oropharynx is clear, without swelling. No stridor. Ears normal, nares patent, Moist mucous membranes. NECK: Normal range of motion, supple without lymphadenopathy, JVD, or masses. LUNGS: Breath sounds equal, clear to auscultation bilaterally. No wheeze/ crackles. HEART: Regular rate and rhythm, normal S1 and S2 without murmur or rub. ABDOMEN: Soft/nontender/nondistended. BS wnl. No guarding or rebound. No palpable masses. No hepatosplenomegaly. EXTREMITIES: Normal range of motion, no edema. No clubbing or cyanosis. No cords, erythema, or tenderness. NEUROLOGICAL: Cranial nerves II through XII grossly intact. Normal speech, normal gait. PSYCH: Normal mood, normal affect. SKIN: +blotchy utericial rash to the neck, upper chest and arm. Warm, Dry, normal turgor, No lesions noted. ED Treatment Course - Medications Given in the ED: ED Medications Discontinued Medications Generic Name Dose Route Start Last Admin Trade Name Forrestq PRN Reason Stop Dose Admin Diphenhydramine HCl 50 mg 04/13/19 21:56 04/13/19 22:07 Benadryl - PO 04/13/19 21:57 50 mg ONCE ONE Administration Famotidine 20 mg 04/13/19 21:56 04/13/19 22:07 Acid Hop Worker PO 04/13/19 21:57 20 mg ONCE ONE Administration Medical Decision Making - Medical Decision Making 04/13/19 22:48 A portion of this note was documented by scribe services under my direction. I have reviewed the details of the note, within reason, and agree with the documentation with the following case summary and management plan written by me. 74-year-old female with history of asthma, recurring thrush, known allergy to nystatin presents with itchy red rash in the setting of taking clotrimazole for recurrence of thrush. Patient was seen by her PCP, prescribed clotrimazole for oral thrush, took first and second doses about 3 hours apart at 10 AM and 1:30 PM, and about 1 hour later developed itchy red rash to neck/torso/arms. Patient presents for further evaluation of persistent rash. No throat closure, no difficulty swallowing or breathing, no asthma exacerbation or wheezing or shortness of breath. Patient did have dermatology evaluation in the past and does not have any other known allergies, denies any other new triggers or exposures. Vitals as noted and within normal limits, afebrile Patient is seated comfortably in stretcher, slightly anxious, but in no acute distress Speaking full sentences fluently, no stridor Subtle tongue thrush, no oral pharyngeal thrush, no oral pharyngeal swelling Lungs are clear, there was a single noted inspiratory wheeze on the left which cleared, otherwise good air entry without accessory muscle use, no focally decreased breath sounds, no wheezing or crackles Abdomen benign Blotchy residual urticaria to neck and chest and arms 74-year-old female with urticarial reaction to another antifungal, which she was taking for oral thrush. No airway or respiratory involvement or distress, patient is hemodynamically stable here. Given Benadryl and prednisone for allergic reaction Withhold any further antifungals until further evaluated PCP and car hostler follow-up Understands return criteria Discharge - Discharge Information Problems reviewed: Yes Clinical Impression/Diagnosis: Oral thrush Allergic reaction Qualifiers: Encounter type: initial encounter Qualified Code(s): T78.40XA - Allergy, unspecified, initial encounter - Admission No - Additional Discharge Information Prescriptions: Methylprednisolone [Medrol Dose Emerson] 4 mg PO ASDIR #21 tablet - Follow up/Referral Referrals: Augusta Pisano [Non Staff, Medical] - - Patient Discharge Instructions Patient Printed Discharge Instructions: DI for General Allergic Reactions Additional Instructions: Activity as tolerated. Stay hydrated. The rash is likely an allergic reaction to the clotrimazole, which is an antifungal similar to nystatin. STOP the clotrimazole, take Medrol Dosepak as prescribed for allergic reaction. You may need to take Benadryl if rash occurs again, take 50 mg, this is available [id number]. Continue your other medications as previously prescribed by your physician. You should follow up with your primary doctor and car hostler as soon as possible regarding today's emergency department visit. Return to the emergency department for any new or concerning symptoms, particularly worsening rash or itchiness, throat swelling or tightness, difficulty breathing or asthma exacerbation, fevers or chills. - Post Discharge Activity
== END 2019-04-13 23:46 | disposition home or self-care (01) ==
LOC: SUPCPDRO 21:24 → FER 21:24
DX: B37.0 Candidal stomatitis (principal); Z88.8 Allergy status to other drugs, medicaments and biological substances; I10 Essential (primary) hypertension; E78.5 Hyperlipidemia, unspecified; K21.9 Gastro-esophageal reflux disease without esophagitis; J40 Bronchitis, not specified as acute or chronic
CPT/HCPCS: 99283-25

== ENCOUNTER 2020-03-04 23:45 | Emergency (ER) | payer OTHER ==
[2020-03-04 23:54] VITALS: BP 169/84; PULSE 69; TEMP 97.7; BMI 20.2
== END 2020-03-05 00:27 | disposition home or self-care (01) ==
LOC: SUPCPDRO 23:45 → FER 23:45
DX: R61 Generalized hyperhidrosis (principal); I10 Essential (primary) hypertension; M54.2 Cervicalgia
CPT/HCPCS: 93005; 99284-25

== ENCOUNTER 2020-03-05 17:52 | Emergency (ER) | payer OTHER ==
[2020-03-05 18:08] VITALS: BP 147/76; PULSE 82; TEMP 98.8; BMI 20.9
[2020-03-05] MEDS ORDERED: SODIUM CHLORIDE 0.9% 500 ML INFUS.BAG IV ONE (18:34)
[2020-03-05 19:14] LABS: BASO % 2.3 % (0-2.0); EOS % 3.5 % (0-4.5); HEMATOCRIT 41.9 % (32.4-45.2); HEMOGLOBIN 14.4 GM/dl (10.7-15.3); LYMPH % 15.9 % (8-40); MCH 32.1 pg (25.7-33.7); MCHC 34.5 g/dl (32.0-36.0); MEAN PLT VOLUME 9.6 fl (7.5-11.1); NEUT % 70.3 % (42.8-82.8); PLATELET COUNT 189 K/MM3 (134-434); RDW 12.8 % (11.6-15.6); WHITE BLOOD COUNT 8.6 K/mm3 (4.0-10.8)
[2020-03-05 19:35] LABS: ALBUMIN 4.1 g/dl (3.4-5.0); BILIRUBIN,TOTAL 0.8 mg/dl (0.2-1); CALCIUM 9.3 mg/dl (8.5-10); CREATININE 0.7 mg/dl (0.55-1.3); MAGNESIUM 2.1 mg/dL (1.8-2.4)
== END 2020-03-05 21:37 | disposition home or self-care (01) ==
LOC: FER 17:52
DX: R61 Generalized hyperhidrosis (principal); R06.02 Shortness of breath; Z03.818 Encounter for observation for suspected exposure to other biological agents ruled out
CPT/HCPCS: 36415; 71046-TC-FY; 80053; 83735; 84484; 85025; 93005; 99285-25; C9803; U0003

== ENCOUNTER 2020-03-12 21:26 | Emergency (ER) | payer OTHER ==
[2020-03-12 21:38] VITALS: TEMP 98.6; BMI 19.9
[2020-03-12] MEDS ORDERED: LIDOCAINE VISCOUS 2% ORAL/TOP 15 ML UNIT-DOSE CUP MM ONE (22:05)
[2020-03-12] MEDS ORDERED: MAG HYDROX/AL HYDROX/SIMETH 30 ML UNIT-DOSE CUP PO ONE (22:06)
[2020-03-12] MEDS ORDERED: MAG HYDROX/AL HYDROX/SIMETH 30 ML UNIT-DOSE CUP ONE (22:08)
[2020-03-12] MEDS ORDERED: LIDOCAINE VISCOUS 2% ORAL/TOP 15 ML UNIT-DOSE CUP ONE (22:08)
[2020-03-12 23:05] VITALS: BP 157/65; PULSE 56
[2020-03-12 23:08] LABS: EOS % 3.6 % (0-4.5); HEMATOCRIT 42.2 % (32.4-45.2); HEMOGLOBIN 14.4 GM/dl (10.7-15.3); LYMPH % 21.7 % (8-40); MCH 31.7 pg (25.7-33.7); MCHC 34.2 g/dl (32.0-36.0); MEAN CELL VOLUME 92.7 fl (80-96); MEAN PLT VOLUME 9.6 fl (7.5-11.1); MONO % 9.3 % (3.8-10.2); NEUT % 63.4 % (42.8-82.8); PLATELET COUNT 187 K/MM3 (134-434); RBC 4.55 M/mm3 (3.60-5.2); RDW 12.8 % (11.6-15.6); WHITE BLOOD COUNT 7.4 K/mm3 (4.0-10.8)
[2020-03-12 23:24] LABS: BILIRUBIN,TOTAL 1.1 mg/dl (0.2-1); CALCIUM 9.6 mg/dl (8.5-10); CREATININE 0.7 mg/dl (0.55-1.3); TOT PROT 6.7 g/dl (6.4-8.2)
== END 2020-03-13 00:06 | disposition home or self-care (01) ==
LOC: FER 21:26
DX: R06.02 Shortness of breath (principal); M54.2 Cervicalgia; R10.13 Epigastric pain
CPT/HCPCS: 36415; 71045-TC-FY; 80053; 84484; 85025; 93005; 99285-25

== ENCOUNTER 2021-04-24 23:15 | Emergency (ER) | payer OTHER ==
[2021-04-24 23:22] VITALS: BP 158/61; PULSE 72; TEMP 97.7; BMI 19.9
[2021-04-25 01:19] LABS: BASO % 0.3 % (0-2.0); EOS % 5.2 % (0-4.5); HEMATOCRIT 42.6 % (32.4-45.2); HEMOGLOBIN 14.4 GM/dL (10.7-15.3); LYMPH % 18.5 % (8-40); MCH 31.2 pg (25.7-33.7); MCHC 33.8 g/dl (32.0-36.0); MEAN CELL VOLUME 92.5 fl (80-96); MEAN PLT VOLUME 9.2 fl (7.5-11.1); MONO % 7.6 % (3.8-10.2); NEUT % 68.4 % (42.8-82.8); PLATELET COUNT 175 10^3/uL (134-434); RBC 4.61 M/mm3 (3.60-5.2); RDW 13.7 % (11.6-15.6); WHITE BLOOD COUNT 6.7 K/mm3 (4.0-10.0)
[2021-04-25 01:20] LABS: URINE APPEARANCE CLEAR; URINE BILIRUBIN NEGATIVE (NEGATIVE); URINE COLOR YELLOW; URINE GLUCOSE (UA) NEGATIVE (NEGATIVE); URINE KETONE NEGATIVE (NEGATIVE); URINE LEUK ESTERASE NEGATIVE (NEGATIVE); URINE NITRITE NEGATIVE (NEGATIVE); URINE PROTEIN NEGATIVE (NEGATIVE); URINE UROBILINOGEN 0.2 mg/dL (0.2-1.0)
[2021-04-25 01:41] LABS: BLOOD UREA NITROGEN 17.4 mg/dL (7-18)
[2021-04-25 01:44] LABS: CREATININE 0.8 mg/dL (0.55-1.3)
[2021-04-25 01:46] LABS: BILIRUBIN,TOTAL 0.6 mg/dL (0.2-1); TOT PROT 7.6 g/dl (6.4-8.2)
== END 2021-04-25 02:06 | disposition home or self-care (01) ==
LOC: FER 23:15
DX: K52.9 Noninfective gastroenteritis and colitis, unspecified (principal)
CPT/HCPCS: 36415; 70450-TC; 70553-TC; 80053; 81003; 85025; 99284-25; A9579; C1887

== ENCOUNTER 2022-08-05 07:12 | Emergency (ER) | payer OTHER ==
[2022-08-05 07:16] VITALS: BP 161/65; PULSE 58; RESP 17; TEMP 98.2; BMI 21.2
[2022-08-05 09:22] LABS: ALBUMIN 3.6 g/dl (3.4-5.0); BILIRUBIN,TOTAL 1.1 mg/dl (0.2-1); CALCIUM 8.9 mg/dl (8.5-10); CREATININE 0.6 mg/dl (0.55-1.3); HEMATOCRIT 41.6 % (32.4-45.2); HEMOGLOBIN 13.8 G/dL (10.7-15.3); MCH 31.5 pg (25.7-33.7); MCHC 33.3 g/dl (32.0-36.0); MEAN CELL VOLUME 94.6 fl (80-96); MEAN PLT VOLUME 9.5 fl (7.5-11.1); PLATELET COUNT 154.6 10^3/uL (134-434); POTASSIUM 3.4 mmol/L (3.5-5.1); RDW 13.9 % (11.6-15.6); TOT PROT 6.3 g/dl (6.4-8.2); WHITE BLOOD COUNT 7.4 10^3/uL (4.0-10.8)
[2022-08-05] MEDS ORDERED: POTASSIUM CHLORIDE TABS 20 MEQ TABLET.ER (FP) PO ONE ×2 (09:26→09:34)
[2022-08-05 09:32] LABS: PLATELET ESTIMATE ADEQUATE
== END 2022-08-05 09:48 | disposition home or self-care (01) ==
LOC: FER 07:12
DX: M79.662 Pain in left lower leg (principal); R07.9 Chest pain, unspecified
CPT/HCPCS: 36415; 80053; 84484; 85027; 93005; 93971-TC; 99285-25

== ENCOUNTER 2024-03-19 12:11 | Emergency (ER) | payer OTHER ==
[2024-03-19 12:19] VITALS: BP 141/66; PULSE 61; RESP 18; TEMP 98.6; BMI 21.6
[2024-03-19 12:55] LABS: HEMATOCRIT 39.7 % (32.4-45.2); HEMOGLOBIN 13.4 G/dL (10.7-15.3); MCH 31.4 pg (25.7-33.7); MCHC 33.6 g/dl (32.0-36.0); MEAN CELL VOLUME 93.4 fl (80-96); MEAN PLT VOLUME 10.1 fl (7.5-11.1); PLATELET COUNT 188.3 10^3/uL (134-434); RBC 4.25 10^6/uL (3.60-5.2); RDW 13.7 % (11.6-15.6); WHITE BLOOD COUNT 5.9 10^3/uL (4.0-10.8)
[2024-03-19 13:59] LABS: ALBUMIN 3.9 g/dl (3.4-5.0); BILIRUBIN,TOTAL 0.9 mg/dl (0.2-1); CALCIUM 9.3 mg/dl (8.5-10.1); CREATININE 0.7 mg/dl (0.6-1.3); POTASSIUM 4.1 mmol/L (3.5-5.1)
[2024-03-19] MEDS: SODIUM CHLORIDE 0.9% 500 ML INFUS.BAG IV ONE (15:44)
== END 2024-03-19 17:44 | disposition home or self-care (01) ==
LOC: FER 12:11
DX: K52.9 Noninfective gastroenteritis and colitis, unspecified (principal); R10.84 Generalized abdominal pain; R63.0 Anorexia
CPT/HCPCS: 36415; 74177-TC; 80053; 81003; 82550; 83690; 84484; 85025; 87086; 93005; 99285-25

== ENCOUNTER 2024-06-24 12:33 | Emergency (ER) | payer OTHER ==
[2024-06-24 12:46] VITALS: BP 140/68; PULSE 67; RESP 17; TEMP 97.9; BMI 19.8
[2024-06-24] MEDS ORDERED: DICYCLOMINE HCL 10 MG CAPSULE ONE (13:25)
[2024-06-24] MEDS ORDERED: ACETAMINOPHEN INJECTION 100 ML ONE (13:27)
[2024-06-24] MEDS: DICYCLOMINE HCL 10 MG CAPSULE PO ONE (13:38)
[2024-06-24] MEDS: LACTATED RINGERS SOLUTION 1,000 ML/1,000 ML INFUS.BAG IV SCH (13:45)
[2024-06-24] MEDS: ACETAMINOPHEN 1000 MG/100 ML BAG IVPB ONE (13:45)
[2024-06-24 14:25] LABS: BASOPHILS # 0.02 x10^3/uL (0.01-0.08); EOSINOPHIL % 1.8 % (0.7-5.8); EOSINOPHILS # 0.11 x10^3/uL (0.04-0.36); HEMATOCRIT 36.3 % (34.1-44.9); HEMOGLOBIN 11.9 g/dL (11.2-15.7); MCHC 32.8 g/dl (32.2-35.5); MEAN CELL VOLUME 96.3 fl (79.4-94.8); MEAN PLT VOLUME 11.2 fl (9.4-12.3); MONOCYTE # 0.51 x10^3/uL (0.24-0.86); MONOCYTE % 8.3 % (4.7-12.5); PLATELET COUNT 166 x10^3/uL (182-369); RDW 13.2 % (12.5-17.0)
[2024-06-24 14:51] LABS: ALBUMIN 3.4 g/dl (3.4-5.0); BILIRUBIN,TOTAL 0.7 mg/dl (0.2-1); CALCIUM 7.8 mg/dl (8.5-10.1); CREATININE 0.6 mg/dl (0.6-1.3); MAGNESIUM 1.8 mg/dL (1.8-2.4); POTASSIUM 3.4 mmol/L (3.5-5.1)
[2024-06-24] MEDS ORDERED: POTASSIUM CHLORIDE ORAL LIQUID 20 MEQ/15 ML ONE (15:18)
[2024-06-24] MEDS: POTASSIUM CHLORIDE ORAL LIQUID 20 MEQ/15 ML PO ONE (15:19)
== END 2024-06-24 16:45 | disposition home or self-care (01) ==
LOC: FER 12:33
PROC: 3E033NZ Introduction of Analgesics, Hypnotics, Sedatives into Peripheral Vein, Percutaneous Approach (ICD-10-PCS; principal; 2024-06-24)
DX: R10.84 Generalized abdominal pain (principal); G89.29 Other chronic pain
CPT/HCPCS: 36415; 74174-TC; 80053; 83605; 83690; 83735; 84100; 84484; 85025; 93005; 99285-25; J0131; Q9967

== ENCOUNTER 2024-07-14 23:47 | Emergency (ER) | payer OTHER ==
[2024-07-14 23:58] VITALS: BMI 19.7
[2024-07-15] MEDS ORDERED: ACETAMINOPHEN INJECTION 100 ML ONE (00:31)
[2024-07-15] MEDS: SODIUM CHLORIDE 0.9% 500 ML INFUS.BAG IV ONE ×2 (00:40→08:36)
[2024-07-15] MEDS: ACETAMINOPHEN 1000 MG/100 ML BAG IVPB ONE (00:40)
[2024-07-15 02:05] LABS: ABSOLUTE IMMATURE GRANULOCYTES 0.02 x10^3/uL (0.0-0.031); BASOPHILS # 0.03 x10^3/uL (0.01-0.08); EOSINOPHIL % 2.2 % (0.7-5.8); HEMOGLOBIN 12.5 g/dL (11.2-15.7); MCHC 32.1 g/dl (32.2-35.5); MEAN CELL VOLUME 96.1 fl (79.4-94.8); MEAN PLT VOLUME 11.7 fl (9.4-12.3); MONOCYTE # 0.85 x10^3/uL (0.24-0.86); MONOCYTE % 9.5 % (4.7-12.5); PLATELET COUNT 215 x10^3/uL (182-369); RDW 13.1 % (12.5-17.0)
[2024-07-15 02:09] LABS: URINE APPEARANCE CLEAR; URINE BILIRUBIN NEGATIVE (NEGATIVE); URINE COLOR YELLOW; URINE GLUCOSE (UA) NEGATIVE (NEGATIVE); URINE KETONE NEGATIVE (NEGATIVE); URINE LEUK ESTERASE 1+ (NEGATIVE); URINE NITRITE NEGATIVE (NEGATIVE); URINE PROTEIN NEGATIVE (NEGATIVE); URINE UROBILINOGEN 0.2 mg/dL (0.2-1.0)
[2024-07-15 02:22] LABS: POTASSIUM 3.9 mmol/L (3.5-5.1)
[2024-07-15 02:25] LABS: ALBUMIN 3.5 g/dl (3.4-5.0); BLOOD UREA NITROGEN 17.7 mg/dL (7-18); CALCIUM 9.4 mg/dL (8.5-10.1); MAGNESIUM 2.3 mg/dL (1.8-2.4)
[2024-07-15 02:29] LABS: CREATININE 0.6 mg/dL (0.55-1.3)
[2024-07-15 02:30] LABS: BILIRUBIN,TOTAL 0.8 mg/dL (0.2-1); TOT PROT 6.5 g/dl (6.4-8.2)
[2024-07-15 02:45] LABS: URINE RBC 6.5 /uL (0-23.9); URINE WBC 22.4 /uL (0-25.8)
[2024-07-15 02:46] LABS: EPI CELLS 1.3 /uL (0-25.1); HYALINE CASTS 0.37 /uL (0-3.1); URINE BACTERIA 34.3 /uL (0-1359)
[2024-07-15] MEDS: morphine CARPU-JECT 2 MG/1 ML DISP.SYRIN IVPUSH ONE (06:52)
[2024-07-15] MEDS ORDERED: KETOROLAC TROMETHAMINE 30 MG/1 ML VIAL ONE (08:40)
[2024-07-15] MEDS: KETOROLAC TROMETHAMINE 30 MG/1 ML VIAL IVPUSH ONE (08:42)
[2024-07-15 09:55] VITALS: BP 141/62; PULSE 66; RESP 16; TEMP 98.1
== END 2024-07-15 09:56 | disposition home or self-care (01) ==
LOC: FER 23:47
PROC: 3E033NZ Introduction of Analgesics, Hypnotics, Sedatives into Peripheral Vein, Percutaneous Approach (ICD-10-PCS; principal; 2024-07-14)
PROC: 3E0333Z Introduction of Anti-inflammatory into Peripheral Vein, Percutaneous Approach (ICD-10-PCS; 2024-07-14)
DX: S32.010A Wedge compression fracture of first lumbar vertebra, initial encounter for closed fracture (principal); R10.32 Left lower quadrant pain; R00.1 Bradycardia, unspecified; X58.XXXA Exposure to other specified factors, initial encounter
CPT/HCPCS: 36415; 74177-TC; 80053; 81003; 82550; 83605; 83735; 84484; 85025; 87086; 93005; 99285-25; J0131; Q9967

== ENCOUNTER 2024-07-28 21:31 | Emergency (ER) | payer OTHER ==
[2024-07-28 21:39] VITALS: BP 159/63; PULSE 61; RESP 18; TEMP 98.2; BMI 19.7
[2024-07-28] MEDS ORDERED: ALBUTEROL SO4 2.5/IPRATROPIUM 0.5 INH SOL 3 ML VIAL.NEB. NEB ONE (21:53)
[2024-07-28] MEDS ORDERED: predniSONE 20 MG TABLET (UD) ONE (21:53)
[2024-07-28] MEDS: predniSONE 20 MG TABLET (UD) PO ONE (21:56)
[2024-07-28] MEDS: ALBUTEROL SO4 2.5/IPRATROPIUM 0.5 INH SOL 3 ML VIAL.NEB. NEB ONE (21:56)
== END 2024-07-28 22:39 | disposition home or self-care (01) ==
LOC: FER 21:31
PROC: 3E0F7GC Introduction of Other Therapeutic Substance into Respiratory Tract, Via Natural or Artificial Opening (ICD-10-PCS; principal; 2024-07-28)
DX: J45.901 Unspecified asthma with (acute) exacerbation (principal); R06.02 Shortness of breath; R10.9 Unspecified abdominal pain
CPT/HCPCS: 99283-25